=== PATIENT | female | born 1935 | race Caucasian/White ===

== ENCOUNTER 2020-08-26 14:55 | Outpatient (REF) | payer MEDICARE, SELFPAY | END 2020-08-26 14:56 | disposition home or self-care (01) | LOC: HO.LAB 14:55 | PROVIDERS: Visit Provider Internal Medicine | DX: Z20.828 Contact with and (suspected) exposure to other viral communicable diseases (principal) | CPT/HCPCS: C9803; U0003 ==

== ENCOUNTER 2022-04-22 11:50 | Emergency (ER) | payer MEDICARE, SELFPAY ==
--- NOTE | ~2022-04-22 | CT_ITS ---
EXAMINATION: CT HEAD WITHOUT CONTRAST CLINICAL INFORMATION: Head strike. COMPARISON: None TECHNIQUE: Contiguous axial imaging was performed from the skull base to vertex without intravenous administration of contrast. Coronal and sagittal reformatted images were obtained. This CT examination was performed using dose optimization techniques as appropriate, variously including the following: *Automated exposure control *Adjustment of mA and/or kV according to patient size (this includes techniques or standardized protocols for targeted exams where dose is matched to indication/reason for exam; i.e. extremities or head) *Use of iterative reconstruction technique DLP: 658.52 mGy-cm FINDINGS: There is no evidence of acute intracranial hemorrhage or territorial infarction. No abnormal mass effect or midline shift is seen. [place] to white matter differentiation is well preserved. No extra-axial fluid collections are identified. The ventricles are normal in size. There is no abnormal attenuation within the brain parenchyma. The osseous structures and soft tissues are normal. The paranasal sinuses show a retention cyst versus inflammatory polyp anteriorly in the left maxillary sinus measuring 1.1 cm (image 73, series 5). No air-fluid levels. CT/CT head/brain wo con IMPRESSION: No acute intracranial pathology.
--- NOTE | ~2022-04-22 | CT_ITS ---
EXAMINATION: CT CERVICAL SPINE WITHOUT CONTRAST CLINICAL INFORMATION: Head strike, neck pain. COMPARISON: None TECHNIQUE: Multiple axial images of the cervical spine were obtained without the administration of intravenous contrast. Coronal and sagittal reformatted images were obtained. This CT examination was performed using dose optimization techniques as appropriate, variously including the following: *Automated exposure control *Adjustment of mA and/or kV according to patient size (this includes techniques or standardized protocols for targeted exams where dose is matched to indication/reason for exam; i.e. extremities or head) *Use of iterative reconstruction technique DLP: 326.29 mGy-cm FINDINGS: There is straightening of the normal cervical lordosis. Mild to moderate multilevel degenerative disc disease is seen most pronounced at C5-6 and C6-7. Mild grade 1 anterolisthesis is seen at C3-4 and C4-5. The neural foramina are patent. Mild to moderate multilevel facet arthropathy seen bilaterally. The spinous processes are intact. The cervical soft tissues are unremarkable. There is no lymphadenopathy. The thyroid gland is unremarkable. The lung apices are clear. CT/CT cervical spine wo con IMPRESSION: 1. Straightening of the normal cervical lordosis may be secondary to positioning and/or muscle spasm. 2. Mild to moderate multilevel degenerative changes without definitive acute abnormality.
[2022-04-22 11:58] VITALS: BP 150/78; PULSE 108; RESP 18; TEMP 36.8; O2SAT 95; BMI 38.7
--- NOTE | 2022-04-22 15:24 | ED_ITS ---
HPI - Head Injury General Chief complaint: Head Injury Stated complaint: Fall/head inj no thinners Time Seen by Provider: 04/22/22 15:24 Source: patient Mode of arrival: ambulatory Limitations: no limitations History of Present Illness HPI Narrative: patient fell when she was tripped by her dog hitting her head against the window sill. No LOC MD Complaint: head injury Onset (ago): hour(s) Mechanism of Injury: fall Place: home Loss of Consciousness: no Location of injury: occipital Severity: moderate Associated symptoms: denies other symptoms Related Data Previous Rx's Medication Instructions Recorded bacitracin 500 unit/gram topical 1 appl topical BID #28 grams 04/22/22 ointment Allergies Allergy/AdvReac Type Severity Reaction Status Date / Time infliximab [From Remicade] Allergy Redness of Verified 04/22/22 11:57 Skin procaine [From Novocain] Allergy Chest Pain Verified 04/22/22 11:57 Review of Systems Constitutional: Constitutional: Reports no additional constitutional complaints Eyes: Eyes: Reports no additional eye complaints ENT: Denies dizziness Cardiovascular: Cardiovascular: Reports no additional cardiovascular complaints Respiratory: Respiratory: Reports as per HPI Gastrointestinal: Gastrointestinal: Reports no additional gastrointestinal complaints Genitourinary: Genitourinary: Reports no additional female genitourinary complaints Musculoskeletal: Musculoskeletal: Reports no additional musculoskeletal complaints Integumentary/Breasts: Skin/Breast: Denies rash Neurologic: Reports system reviewed and no additional complaints, except as do cumented, Denies dizziness and Denies Sensory deficit (Neuro) Psychiatric: Psychiatric: Denies anxiety Physical Exam Vital Signs: Vital Signs: Last Vital Signs Temp 98.2 F 04/22/22 11:58 Pulse 108 H 04/22/22 11:58 Resp 18 04/22/22 11:58 BP 150/78 H 04/22/22 11:58 Pulse Ox 95 04/22/22 11:58 O2 Del Method 04/22/22 11:58 BMI result Body Mass Index 38.7 Const: General: healthy appearing Nutritional Appearance: obese Orientation/consciousness: oriented to person and patient oriented x3 Limitations: no limitations HEENT: Head: Yes normal to inspection Ears: external ears normal General nose exam: Normal external nose present Mouth: Normal oral and palatal mucosa present and oropharynx normal Throat: Yes posterior oropharynx normal Eyes: General: appearance normal, both eyes and all related structures Neck: Other: supple Neck: Yes normal visual inspection Chest: Chest palpation & inspection: normal inspection of the chest Resp: Auscultation: clear to auscultation bilaterally Cardio: Jugular venous distension: no JVD Rate: regular rate Rhythm: regular rhythm Heart sounds: S1 normal heart sound present and S2 normal heart sound present GI: Inspection: Yes normal to inspection Palpation (GI): Soft to palpation, nontender and No hepatosplenomegaly present Auscultation: normal bowel sounds : General: Yes no CVA tenderness Back/Spine/Pelvis: Back: no CVA tenderness Skin: Other: 4cm laceration to occipital area General skin exam: no rashes or lesions noted Neuro: General: oriented to person and patient oriented x3 Cranial nerves: Yes CN's II-XII intact bilaterally Motor exam (neuro): 5/5 motor strength present throughout Sensory Exam: No Sensory deficit (Neuro) Extrem: General: Yes normal to inspection Psych: Appearance: grossly normal Course Reevaluation(s) Reevaluation #1: patient received 4 rishi and had a negative head CT will dc home Time: 15:27 Procedures Procedure Narrative Procedure Narrative: patient prepped and draped, 4 x rishi placed, patient tolerated procedure well. Discharge Plan Discharge Clinical Impression: Closed head injury, Laceration of scalp Patient Disposition: Home, Self-Care Instructions: Laceration (ED) Additional Instructions: place bacitracin on wound twice a day, rishi get removed in 10 days Prescriptions: New bacitracin 500 unit/gram ointment 1 appl topical BID Qty: 28 0RF Referrals: Physician,Unknown J [Primary Care Provider] - 10 days
[2022-04-22] MEDS: Diphth,Pertus(ACell),Tet Adult 0.5 ML SYRINGE IM (15:45)
[2022-04-22] MEDS: Bacitracin Oint 14 GM TUBE 1 APPL TOPICAL (15:46)
== END 2022-04-22 16:09 | disposition home or self-care (01) ==
LOC: HO.ED 16:01
PROVIDERS: Emergency Provider Emergency Medicine
DX: S01.01XA Laceration without foreign body of scalp, initial encounter (principal); M54.50 Low back pain, unspecified; M54.2 Cervicalgia; R51.9 Headache, unspecified; W01.10XA Fall on same level from slipping, tripping and stumbling with subsequent striking against unspecified object, initial encounter; Y93.K1 Activity, walking an animal; Y92.410 Unspecified street and highway as the place of occurrence of the external cause; Y99.9 Unspecified external cause status; Z79.899 Other long term (current) drug therapy
CPT/HCPCS: 12002; 70450; 72125; 90471; 90715; 99282; 99284

== ENCOUNTER 2022-05-02 09:21 | Emergency (ER) | payer MEDICARE, BC, SELFPAY ==
[2022-05-02 09:51] VITALS: BP 150/76; PULSE 84; RESP 18; TEMP 36.8; O2SAT 94
[2022-05-02 11:20] VITALS: BP 117/75; PULSE 68; RESP 18; TEMP 37.1; O2SAT 95; BMI 38.4
--- NOTE | 2022-05-02 13:20 | ED.WOUNDLAC ---
HPI - Wound/Laceration General Chief Complaint: Wound/Laceration Stated Complaint: staple removal Time Seen by Provider: 05/02/22 13:19 History of Present Illness HPI narrative: Patient here for staple removal after rishi were placed a week ago She has no complaints no pain no drainage no redness no headaches no fever Related Data Previous Rx's Medication Instructions Recorded bacitracin 500 unit/gram topical 1 appl topical BID #28 grams 04/22/22 ointment Allergies Allergy/AdvReac Type Severity Reaction Status Date / Time infliximab [From Remicade] Allergy Redness of Verified 04/22/22 11:57 Skin procaine [From Novocain] Allergy Chest Pain Verified 04/22/22 11:57 Review of Systems Review of Systems: No fever no chills no dizziness no headache no vision change no nausea no vomiting no balance issues Yes all other systems are reviewed and are negative [facility] Past Medical History Source: nursing notes reviewed Social History Social History Advance Directives: Yes Advance Directives Information Provided: Yes Advance Directives on File: No Physical Exam Vital Signs: Vital Signs: Last Vital Signs Temp 98.7 F 05/02/22 11:20 Pulse 68 05/02/22 11:20 Resp 18 05/02/22 11:20 BP 117/75 05/02/22 11:20 Pulse Ox 95 05/02/22 11:20 O2 Del Method 05/02/22 11:20 BMI result Body Mass Index 38.4 General appearance no distress The scalp has [address] with a well-approximated wound with no redness no discharge no swelling no tenderness The neck is supple Respiratory no distress Extremities full range of motion x4 Course Course Course Narrative: Four rishi were easily removed with no wound dehiscence, no sign of infection Discharge Plan Discharge Clinical Impression: Removal of staple Patient Disposition: Home, Self-Care Additional Instructions: [place] are removed, no sign of any infection Prescriptions: No Action bacitracin 500 unit/gram ointment 1 appl topical BID Qty: 28 0RF Interventions: ED Discharge Assessment Last Done: 05/02/22 13:26 Discharge Date/Time: 05/02/22 13:27
== END 2022-05-02 13:27 | disposition home or self-care (01) ==
PROVIDERS: Emergency Provider Emergency Medicine; PCP Internal Medicine
DX: Z48.02 Encounter for removal of sutures (principal)
CPT/HCPCS: 99283; 99284